=== PATIENT | female | born 1955 | race Two or more races ===

== ENCOUNTER 2019-09-25 11:41 | Outpatient (CLI) | payer OTHER | END 2019-09-25 11:48 | disposition home or self-care (01) | LOC: SONOGRAMA 11:41 | DX: E04.1 Nontoxic single thyroid nodule (principal) ==

== ENCOUNTER 2019-10-29 07:18 | Outpatient (CLI) | payer OTHER | END 2019-10-29 07:22 | disposition home or self-care (01) | LOC: NUCLEAR 07:18 | DX: E21.0 Primary hyperparathyroidism (principal) | CPT/HCPCS: 78072; A9500 ==

== ENCOUNTER 2020-12-16 08:37 | Outpatient (CLI) | payer OTHER | END 2020-12-16 08:38 | disposition home or self-care (01) | LOC: SONOGRAMA 08:37 | PROVIDERS: ATTEND Pathology Anatomic Pathology & Clinical Pathology | DX: E04.1 Nontoxic single thyroid nodule (principal) ==